=== PATIENT | male | born 1980 | race African-American/Black ===

== ENCOUNTER 2020-05-11 02:52 | Emergency (ER) | payer OTHER ==
[~2020-05-11] VITALS: Ht 180.3 cm; Wt 95.0 kg
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
[2020-05-11 03:25] VITALS: BP 113/63
[2020-05-11] MEDS ORDERED: cefTRIAXone IM 1 GM VIAL IM ONE (03:30)
[2020-05-11] MEDS ORDERED: SMZ/TMP 800/160MG TABLET. PO ONE (03:30)
[2020-05-11] MEDS ORDERED: CEPH500C PO (03:56)
[2020-05-11] MEDS ORDERED: SULF1TAB24 PO (03:56)
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
== END 2020-05-11 03:25 | disposition home or self-care (01) ==
LOC: ER 02:52
DX: L03.114 Cellulitis of left upper limb (principal)
CPT/HCPCS: 73130; 96372; 99283; J0696